=== PATIENT | female | born 1945 | race Caucasian/White ===

== ENCOUNTER → 2024-05-31 | Outpatient (CLI) | payer BC, SELFPAY ==
[2024-05-31 09:06] LABS: Collection Type, Urine Clean Catch
--- NOTE | 2024-05-31 09:14 | XR_ITS ---
Examination: Knee, right , 3 views Technique: Knee AP, lateral, oblique 3 views Date and time of exam: May 31, 2024 1013 hours INDICATIONS: Right knee pain beginning several years ago. FINDINGS: Severe osteopenia Advanced tricompartment osteoarthritis, severe involving the patellofemoral joint Moderate knee effusion No fracture IMPRESSION: Severe osteopenia Advanced tricompartment osteoarthritis, severe narrowing involving the patellofemoral joint
--- NOTE | 2024-05-31 09:15 | XR_ITS ---
Examination: Screening digital mammography, bilateral Computer aided detection 3-D breast Tomosynthesis, bilateral Date and time of exam: May 31, 2024 2115 hours Compared to mammograms dating to October 09, 2015 Indication: Screening Technique: Nonmagnified MLO, CC views of the breasts to been obtained, reconstructed from 3-D Tomosynthesis images. R2 computer aided detection program utilized for evaluation of suspicious masses and/or abnormal calcifications. 3-D Tomosynthesis images obtained. Findings: Scattered areas of fibroglandular density. Benign calcifications. No interval suspicious masses Impression: BI-RADS category II: Benign Findings. Recommend 1 year follow-up mammogram.
[2024-05-31 09:25] LABS: Basophils % (Auto) 1 % (0-2.5); Eosinophils # (Auto) 0.1 Thou/mm3 (0.0-0.5); Eosinophils % (Auto) 2 % (0-10); Hematocrit 37.3 % (36.0-46.0); Hemoglobin 12.7 g/dL (12.0-16.0); Immature Granulocytes % (Auto) 0 % (0-0); Immature Granulocytes Auto 0.01 Thou/mm3 (0.00-0.00); Lymphocytes # (Auto) 1.5 Thou/mm3 (1.0-4.8); Lymphocytes % (Auto) 24 % (10-50); Mean Corpuscular Hemoglobin 30.8 pg (25.0-35.0); Mean Corpuscular Volume 90 fL (80-100); Monocytes # (Auto) 0.5 Thou/mm3 (0.0-0.8); Monocytes % (Auto) 8 % (0-12); Neutrophils # (Auto) 3.9 Thou/mm3 (1.8-7.7); Neutrophils % (Auto) 65 % (37-80); Nucleated Red Blood Cell % 0 /100 WBC (0); Platelet Count 306 Thou/mm3 (140-440); RDW Standard Deviation 42.7 fL (36.4-46.3); Red Blood Count 4.13 Miln/mm3 (4.00-5.20); White Blood Count 6.1 Thou/mm3 (3.6-11.0)
[2024-05-31 09:37] LABS: Bilirubin,Urine Negative (Negative); Blood,Urine Trace (Negative); Clarity,Urine Clear (Clear/Hazy); Color,Urine Yellow (Lt Yel-Yel); Glucose, Urine Negative (Negative); Ketones,Urine Negative (Negative); Leukocyte Esterase,Urine Positive (Negative); Nitrite,Urine Negative (Negative); PH,Urine 6.5 (5.0-7.0); Protein,Urine Negative (Neg - Trace); RBC,Urine 11 /hpf (0-3); Specific Gravity,Urine 1.019 (1.001-1.035); Squamous Epithelial Cell,Urine 2 /hpf (0-5); Urobilinogen,Urine Negative mg/dL (0.0-1.0); WBC,Urine 1 /hpf (0-5)
[2024-05-31 09:57] LABS: Alanine Aminotransferase 12 U/L (10-49); Albumin, Serum 4.5 gm/dL (3.4-4.8); Albumin/Globulin Ratio 1.8 (1.2-2.2); Alkaline Phosphatase 134 U/L (46-116); Anion Gap 8 (7-16); BUN/Creatinine Ratio 23 Ratio (12-20); Bilirubin,Total 0.6 mg/dL (0.3-1.2); Blood Urea Nitrogen 18 mg/dL (9-23); Calcium 9.7 mg/dL (8.3-10.6); Calcium (Corrected) 9.7 mg/dL (8.5-10.1); Carbon Dioxide 27.6 mMol/L (20.0-31.0); Cardiac Risk Estimate 2.1 RATIO (3.7-5.6); Chloride 101 mMol/L (98-107); Cholesterol 160 mg/dL (132-200); Creatinine (Component) 0.8 mg/dL (0.6-1.3); Globulin 2.5 gm/dL (2.3-3.5); Glucose 93 mg/dL (74-106); HDL Cholesterol 77 mg/dL (40-60); LDL Cholesterol,Calculated 73 mg/dL (0-130); Osmolality,Calculated 275 (275-295); Potassium 3.9 mMol/L (3.4-5.1); Sodium 137 mMol/L (136-145); Thyroid Stimulating Hormone 3.86 uIU/mL (0.55-4.78); Triglycerides 49 mg/dL (30-150); eGFR > 60 See Note
[2024-05-31 10:09] LABS: Aspartate Amino Transferase 19 U/L (0-34)
== END | disposition home or self-care (01) ==
LOC: CDIM 08:32 → COPL 08:32
PROVIDERS: PCP Family Medicine; Referring Provider Family Medicine; Visit Provider Radiology Diagnostic Radiology
DX: Z12.39 Encounter for other screening for malignant neoplasm of breast (principal); R92.323 Mammographic fibroglandular density, bilateral breasts; M85.861 Other specified disorders of bone density and structure, right lower leg; M17.11 Unilateral primary osteoarthritis, right knee; M25.861 Other specified joint disorders, right knee; I10 Essential (primary) hypertension
CPT/HCPCS: 36415; 73562; 77063; 77067; 80053; 80061; 81001; 84443; 85025